=== PATIENT | female | born 1950 | race Caucasian/White ===

== ENCOUNTER 2021-02-10 09:08 | Inpatient (IN) ==
[~2021-02-10 09:08] MED LIST: Buffered Lidocaine 1% SYRIN 1 ml INTRADERM ONE; DiMENhydriNATE IV 50 mg/ml 1 ml VIAL IV PUSH ONE; HYDROcodone/ACETAMIN 5/325 mg TAB PO PRN; Lactated Ringers 1000 ml BAG 1,000 ML IV SCH; Metoclopramide 5 MG/ML VIAL (10 mg) IV PRN; Naloxone 0.4 mg VIAL 0.4 mg/ml 1 ml VIAL IV PRN; Ondansetron 4 mg VIAL 2 MG/ML 2 ml VIAL IV PRN
[2021-02-10] MEDS ORDERED: ceFAZolin 2 GM in NS PREMIX 2 GM/100 ML BAG IVPB ONE (09:23)
[2021-02-10] MEDS ORDERED: Buffered Lidocaine 1% SYRIN 1 ml INTRADERM ONE (09:23)
[2021-02-10] MEDS ORDERED: DiMENhydriNATE IV 50 mg/ml 1 ml VIAL ONE (09:23)
[2021-02-10] MEDS ORDERED: Midazolam 2 mg/2 ml VIAL 1 mg/ml 2 ml VIAL (2 mg) ONE (10:04)
[2021-02-10] MEDS ORDERED: fentaNYL 100 mcg/2 ml 50 MCG/ML VIAL ONE ×3 (10:04→12:55)
[2021-02-10] MEDS ORDERED: Propofol 10 MG/ML 20 ML BTL ONE ×4 (12:13→12:14)
[2021-02-10] MEDS ORDERED: Ondansetron 4 mg VIAL 2 MG/ML 2 ml VIAL ONE (12:14)
[2021-02-10] MEDS ORDERED: Dexamethasone IV 4 MG/ML VIAL 1 ml VIAL ONE (12:14)
[2021-02-10] MEDS ORDERED: Lidocaine 2% PF 10 ML AMP ONE (12:14)
[2021-02-10] MEDS ORDERED: Morphine 2 MG/ML SYRINGE IV PRN (12:50)
[2021-02-10] MEDS ORDERED: diPHENhydraMINE IV 50 MG/ML 1 ml VIAL (BENADRYL) IV PRN (12:50)
[2021-02-10] MEDS ORDERED: Ondansetron 4 mg VIAL 2 MG/ML 2 ml VIAL IV PRN (12:50)
[2021-02-10] MEDS ORDERED: Lactulose 30 ml UDC PO PRN (12:50)
[2021-02-10] MEDS ORDERED: Magnesium Hydroxide LIQ 30 ML UDC PO PRN (12:50)
[2021-02-10] MEDS ORDERED: Ondansetron ODT 4 mg TAB 4 MG TAB PO PRN (12:50)
[2021-02-10] MEDS ORDERED: diPHENhydraMINE 25 mg TAB PO PRN (12:50)
[2021-02-10] MEDS ORDERED: HYDROcodone/ACETAMIN 5/325 mg TAB ONE (12:55)
[2021-02-10] MEDS: fentaNYL 100 mcg/2 ml 50 MCG/ML VIAL IV PRN ×4 (13:00→13:22)
[2021-02-10] MEDS: Lactated Ringers 1000 ml BAG 1,000 ML IV SCH (14:23)
[2021-02-10] MEDS: ceFAZolin 1 GM ADVAN 1 GM in NS 0.9% 50 ML 50 ML IVPB SCH (17:40)
[2021-02-10] MEDS: Magnesium Hydroxide LIQ 30 ML UDC PO SCH (22:30)
[2021-02-11] MEDS: Lactated Ringers 1000 ml BAG 1,000 ML IV SCH (00:52)
[2021-02-11] MEDS: ceFAZolin 1 GM ADVAN 1 GM in NS 0.9% 50 ML 50 ML IVPB SCH ×2 (02:11→10:13)
[2021-02-11 06:08] LABS: Hematocrit 28 % (35-47); Hemoglobin 9.8 g/dL (12.0-16.0); Mean Platelet Volume 8.9 fL (7.4-10.4); Platelet Count 174 10^3/uL (150-450)
[2021-02-11 06:29] LABS: Calcium 8.5 mg/dL (8.6-10.3); EGFR Non-African American 75.2 (>60); Potassium 3.9 mmol/L (3.5-5.0)
[2021-02-11] MEDS: Magnesium Hydroxide LIQ 30 ML UDC PO SCH (08:42)
[2021-02-11] MEDS ORDERED: Vitamin THERAPEUTIC TAB PO SCH (09:00)
[2021-02-11 11:03] VITALS: BP 106/62
== END 2021-02-11 13:15 | disposition home or self-care (01) | DRG 470 ==
LOC: AA 09:08 → SSU 14:25
PROVIDERS: ADMIT Orthopaedic Surgery Adult Reconstructive Orthopaedic Surgery; ATTEND Orthopaedic Surgery Adult Reconstructive Orthopaedic Surgery